=== PATIENT | female | born 1995 | race Two or more races ===

== ENCOUNTER 2019-12-04 10:44 | Observation (INO) | payer MEDICAID | END 2019-12-04 16:55 | disposition home or self-care (01) | DRG 563 | LOC: LDRP 10:44 → UNDODISOB 15:00 → LDRP 15:07 | PROVIDERS: ADMIT Specialist; ATTEND Specialist | DX: O60.03 Preterm labor without delivery, third trimester (principal); Z3A.37 37 weeks gestation of pregnancy | CPT/HCPCS: 76818; G0378 ==

== ENCOUNTER 2019-12-08 21:58 | Observation (INO) | payer MEDICAID ==
[~2019-12-08] VITALS: Ht 175.3 cm; Wt 131.1 kg
== END 2019-12-08 23:42 | disposition home or self-care (01) | DRG 566 ==
LOC: LDRP 21:58
PROVIDERS: ADMIT Obstetrics & Gynecology; ATTEND Obstetrics & Gynecology
DX: O26.893 Other specified pregnancy related conditions, third trimester (principal); R10.9 Unspecified abdominal pain; O26.853 Spotting complicating pregnancy, third trimester; O62.9 Abnormality of forces of labor, unspecified; Z3A.37 37 weeks gestation of pregnancy
CPT/HCPCS: 59025; 81002; G0378

== ENCOUNTER 2019-12-12 16:17 | Inpatient (IN) | payer MEDICAID ==
[~2019-12-12] VITALS: Ht 175.3 cm; Wt 108.0 kg
[2019-12-12] MEDS ORDERED: LACT. RINGERS/OXYTOCIN 20UNITS 1,000 ML IV SCH (16:47)
[2019-12-12] MEDS ORDERED: LACTATED RINGER'S 1,000 ML IV SCH (16:47)
[2019-12-12] MEDS ORDERED: PENICILLIN G POT 5MIL/D5 50ML 50 ML IV ONE (17:00)
[2019-12-12] MEDS ORDERED: NALBUPHINE HCL 10 MG/1ml INJECTION IV PRN (17:00)
[2019-12-12] MEDS ORDERED: WITCH HAZEL-GLYCERIN PAD TOP PRN (17:00)
[2019-12-12] MEDS ORDERED: DERMOPLAST 60ML BOTTLE TOP PRN (17:00)
[2019-12-12] MEDS ORDERED: PHISODERM TOP SOLN 240ML BTL TOP PRN (17:00)
[2019-12-12] MEDS ORDERED: LIDOCAINE 2%HCL (LOCAL ANESTH.) INJ 20ML MDV ID ONE (17:00)
[2019-12-12 17:25] LABS: Basophils # (auto) 0 uL; Eosinophils # (auto) 0 uL; Monocytes # (auto) 0.7 uL; Nucleated Red Blood Cells % 0.1 %; Red Blood Cells 4.22 10^6/uL (4.0-5.20); White Blood Cell 10.7 10^3/uL (4.4-10.8)
[2019-12-12 17:27] LABS: Basophils % (auto) 0.3 % (0.0-2.0); Eosinophils % (auto) 0.4 % (0.0-7.0); Hematocrit 27.7 % (36.0-46.0); Hemoglobin 8.6 g/dL (12.2-16.2); Lymphocytes # (auto) 1.8 uL; Lymphocytes % (auto) 16.6 % (10.0-50.0); Mean Corpuscular Hemoglobin 20.3 pg (28.0-32.0); Mean Corpuscular Hgb Conc. 30.9 g/dL (32.0-36.0); Mean Corpuscular Volume 65.6 fL (80.0-100.0); Monocytes % (auto) 6.4 % (0.0-12.0); Neutrophils # (auto) 8.2 uL; Neutrophils % (auto) 76.3 % (37.0-80.0); Platelet Count (auto) 295 10^3/uL (140-450)
[2019-12-12 17:30] LABS: Red Cell Distribution Width 23.9 % (11.8-14.3)
[2019-12-12 17:35] LABS: Urine Bacteria NONE SEEN /hpf (None Seen); Urine Blood TRACE /uL (Negative); Urine Mucus FEW (None Seen); Urine WBC 3 /hpf (0 - 5)
[2019-12-12] MEDS ORDERED: FERR-7 PO (17:36)
[2019-12-12 17:41] LABS: INR 0.9 (0.9-1.15); Partial Thromboplastin Time 23.6 sec (23.64-32.05)
[2019-12-12 17:47] LABS: Albumin 2.6 g/dL (3.4-5.0); Calcium 8.6 mg/dL (8.5-10.1); Potassium 3.7 mmol/L (3.5-5.1)
[2019-12-12 17:48] LABS: Alcohol, Urine < 3.0 mg/dL (0-5); Amphetamine Screen, Urine NEGATIVE (NEGATIVE); Barbiturate Scree,Urine NEGATIVE (NEGATIVE); Benzodiazephine Screen, Urine NEGATIVE (NEGATIVE); Cannabinoid Screen, Urine NEGATIVE (NEGATIVE); Cocaine Screen, Urine NEGATIVE (NEGATIVE); Opiate Scree,Urine NEGATIVE (NEGATIVE); Phencyclidine Screen, Urine NEGATIVE (NEGATIVE)
[2019-12-12 17:50] LABS: BUN/Creatinine Ratio 11.7; Bilirubin, Total 0.2 mg/dL (0.2-1.0); Total Protein 6.7 g/dL (6.4-8.2); Uric Acid 4.3 mg/dL (2.6-6.0)
[2019-12-12] MEDS ORDERED: ePHEDrine SULFATE 50 MG/ML AMP IV ONE ×3 (18:15→20:00)
[2019-12-12] MEDS ORDERED: fentaNYL 200mCg/100ml W ROPIVA 100 ML EPI SCH ×2 (18:15→20:00)
[2019-12-12] MEDS ORDERED: NALOXONE HCL 0.4 MG/ML VIAL IV ONE ×2 (18:45→20:00)
[2019-12-12] MEDS ORDERED: SODIUM CHLORIDE 0.9% 500 ML IV PRN (19:56)
[2019-12-12] MEDS ORDERED: PENICILLIN G POTASSIUM 2,500,000 UNITS in D5W 5% 50 ML IV SCH (21:00)
[2019-12-13] VITALS (7 sets, daily range): BP systolic 110–144; BP diastolic 55–85
--- NOTE | 2019-12-13 00:25 | NUR ---
Teaching: Reviewed information in [facility] [employer] booklet with patient. Discussed benefits of and risks associated with not . Discussed different positions, proper latch, feeding cues, and baby-led . Provided information of medication side effects related to . All questions and concerns addressed at this time. Patient verbalized understanding of information. Infant latched at this time.
--- NOTE | 2019-12-13 01:00 | NUR ---
Ambulation: Patient OOB with standby assistance by RN. Patient ambulated to bathroom with steady gait. Patient able to void 600ml without difficulty. [facility] teaching provided with returned demonstration by patient. Clean gown provided and bed linen changed. Patient ambulated back to bed with steady gait and no distress noted.
--- NOTE | 2019-12-13 05:42 | NUR ---
Bottle-feeding Education: Patient encouraged to breastfeed. Benefits of reinforced and the risk of providing formula to infant was discussed. Patient verbalized understanding of the benefits and is aware of risk and insists on bottle-feeding. Formula provided and instruction on formula preperation from the [facility] Beginning booklet reviewed with patient.
[2019-12-13] MEDS ORDERED: IBUPROFEN 600 MG TAB PO PRN (08:00)
--- NOTE | 2019-12-13 16:18 | NUR ---
VACCINES PT ASKED IF SHE WOULD LIKE HER VACCINATIONS AT THIS TIME. PER PATIENT, SHE IS TIRED NOW AND F THEY CAN BE GIVEN LATER TONIGHT. WILL NOTIFY M1A1 TANK CREWMAN RN. WILL CONTINUE TO MONITOR.
[2019-12-13] MEDS ORDERED: INFLUENZA QUAD 2019-2020 0.5ml SYRG IM ONE (20:00)
[2019-12-13] MEDS ORDERED: TETANUS-DIPTH-ACEL PERTUSSIS 0.5ML SYRG IM ONE (20:00)
[2019-12-14 02:30] VITALS: BP 105/58
[2019-12-14 04:06] LABS: RPR Non Reactive (Non Reactive)
[2019-12-14] MEDS ORDERED: MEASLES, MUMPS & RUBELLA VAC(MMRII) 0.5ML SC ONE (05:00)
[2019-12-14 07:30] VITALS: BP 104/52
--- NOTE | 2019-12-14 07:59 | NUR ---
IV removal Pt states "My iv is itchy and i want it out now." IV DC'd with clean sterile technique, catheter fully intact. Pressure dressing applied to site. Patient tolerated well.
--- NOTE | 2019-12-14 11:02 | NUR ---
PTS BLOOD PRESSURE TAKEN 143/78, HR 116, PTS LEGS WERE CLOSED DURING READING WILL RE-DO. PT STATES "I AM ANXIOUS, I WANT TO GET HOME TO MY KIDS." PT GIVEN TURKEY SANDWICH, APPLE JUICE A ND ICE PER PATIENT REQUEST TO HELP CALM HER NERVES, ROOM LIGHTS DIMMED, QUIET ROOM, RN WILL RE-DO PTS VITALS.
[2019-12-14 11:13] VITALS: BP 134/72
--- NOTE | 2019-12-14 11:13 | NUR ---
RE-DO VITALS: 134/72, HR 102, RR 20, PT STATES "I FEEL MUCH BETTER AFTER EATING." PT SITTING HIGH MARTINS IN BED. PT PREPARING FOR DISCHARGE.
--- NOTE | 2019-12-14 11:19 | NUR ---
Discharge: Discharge instructions given as ordered. Pt encouraged to follow up with SWEATER OPERATOR as instructed. All questions and concerns addressed. Patient verbalized understanding. Medication reconciliation completed and copy given to patient. All required/requested vaccines given and copies of vaccinations given to patient. Patient encouraged to prepare to depart unit.
--- NOTE | 2019-12-14 11:29 | NUR ---
DR. HOWARD AT NURSES STATIONS, STATUS UPDATE GIVEN. DR. HOWARD NOTIFIED OF PTS TRENDING BLOOD PRESSURES, 1102: PTS BLOOD PRESSURE TAKEN 143/78, HR 116, PT STATES SHE IS ANXIOUS AND WANTS TO GET HOME TO HER OTHER KIDS, REASSESSED BLOOD PRESSURE: BP: 134/72, HR 102, RR 20. ORDERS RECEIVED FROM DR. HOWARD TO CONTINUE WITH DISCHARGING PATIENT HOME AND PATIENT TO FOLLOW UP IN THE OB CLINIC SCHEDULED. READ BACK AND VERIFIED. WILL CARRY OUT.
--- NOTE | 2019-12-14 11:40 | NUR ---
Discharge: Patient taken to vehicle vambulatory via steady gait, pt declined wheelchair with all personal belongings, accompanied by staff and spouse. No distress noted at time of departure, no adverse changes in status since initial assessment.
== END 2019-12-14 11:40 | disposition home or self-care (01) | DRG 560 ==
LOC: OBSVTOIN 16:17 → LDRP 16:17
PROVIDERS: ADMIT Obstetrics & Gynecology; ATTEND Obstetrics & Gynecology
PROC: 10E0XZZ Delivery of Products of Conception, External Approach (ICD-10-PCS; principal; 2019-12-12)
PROC: 0KQM0ZZ Repair Perineum Muscle, Open Approach (ICD-10-PCS; 2019-12-12)
PROC: 3E0R3BZ Introduction of Anesthetic Agent into Spinal Canal, Percutaneous Approach (ICD-10-PCS; 2019-12-12)
PROC: 00HU33Z Insertion of Infusion Device into Spinal Canal, Percutaneous Approach (ICD-10-PCS; 2019-12-12)
PROC: 10907ZC Drainage of Amniotic Fluid, Therapeutic from Products of Conception, Via Natural or Artificial Opening (ICD-10-PCS; 2019-12-12)
DX: O99.824 Streptococcus B carrier state complicating childbirth (principal); E66.9 Obesity, unspecified; D64.9 Anemia, unspecified; O99.02 Anemia complicating childbirth; O70.1 Second degree perineal laceration during delivery; Z37.0 Single live birth; Z3A.38 38 weeks gestation of pregnancy; O99.214 Obesity complicating childbirth
CPT/HCPCS: 36415; 59025; 59409; 62282; 80053; 80307; 81001; 81002; 84112; 84550; 85025; 85610; 85730; 86592; 86850; 86900; 86901; 86920; 90471; 90472; 90715; 94760; 96361; 96366; 96372; G0378; J2540; J2590; J7060